=== PATIENT | female | born 2000 | race Caucasian/White ===

== ENCOUNTER 2019-05-30 22:08 | Emergency (ER) | payer OTHER ==
[~2019-05-30] VITALS: Ht 162.6 cm; Wt 55.3 kg
[2019-05-31] MEDS ORDERED: PEPCID40 MG PO (07:43)
[2019-05-31] MEDS ORDERED: ZOFRAN4 MG PO ×2 (07:44)
== END 2019-05-31 07:54 | disposition home or self-care (01) ==
LOC: ER 22:08
DX: K52.9 Noninfective gastroenteritis and colitis, unspecified (principal); E86.0 Dehydration